=== PATIENT | female | born 1965 | race Caucasian/White ===

== ENCOUNTER 2024-12-11 12:44 | Outpatient (RCR) | payer BC, SELFPAY ==
[2024-12-11 13:49] VITALS: BMI 23.8
== END 2025-03-10 12:09 | disposition home or self-care (01) ==
LOC: ANHDMC 12:44
PROVIDERS: Visit Provider Internal Medicine
DX: E11.9 Type 2 diabetes mellitus without complications (principal); Z71.3 Dietary counseling and surveillance
CPT/HCPCS: 97802